=== PATIENT | female | born 1955 | race Caucasian/White ===

== ENCOUNTER 2018-08-13 11:15 | Inpatient (IN) ==
[2018-08-13] MEDS ORDERED: HYDROmorphone 2 MG/ML VIAL IV PRN ×3 (11:27→15:27)
[2018-08-13] MEDS ORDERED: DIPH,PERTUSS(ACELL),TET VAC/PF 0.5 ML SYRINGE IM ONE (11:51)
--- NOTE | 2018-08-13 12:10 | Cat Scan Report ---
History: Tripped over a dog with pelvic and hip injuries TECHNIQUE: The pelvis was imaged without contrast at 2.5 mm intervals. Sagittal coronal and oblique images were then reformatted. Radiation exposure was limited using dose reduction technology. FINDINGS: There is a nondisplaced fracture laterally in the right upper sacrum. There is buckling of the cortex along the anterior border. The SI joints remain normally aligned and symmetric. Is also a comminuted fracture of the right superior pubic ramus and right pubic bone. An obliquely oriented fracture is present at the junction the right inferior ischial and right inferior pubic ramus. The left side of the pelvis is intact. No hip fracture is present. There are several clips in the pelvis bilaterally adjacent to the iliac vessels. No intrapelvic hematoma is present. There is a hematoma in the right obturator internus muscle. The urinary bladder is intact. Arthritis is seen in the lower lumbar spine and there is grade 1 spondylolisthesis and disc space narrowing at L4-5. IMPRESSION: Nondisplaced fracture of the right side of the sacrum and fractures involving the right superior and inferior pubic rami and body of the right pubic bone Normal hips Billie Mejia was called with the results was called with results Interpreted and Authenticated by: Dax Alicea 08/13/18
--- NOTE | 2018-08-13 12:23 | Emergency Department Note ---
Fall HPI - General Chief Complaint: Fall Stated Complaint: right hip pain, fall Time Seen by Provider: 08/13/18 11:51 Source: patient, EMS Mode of arrival: ambulatory - History of Present Illness HPI Narrative: 63-year-old female presents with severe right sided hip pain. Onset about 30 minutes prior to arrival. She was walking her dog and tripped over the dog because she was in a hurry. Fell to the ground. Did not hit her head. No loss of consciousness. No head, neck, or back pain. The ambulance did give her a couple doses of fentanyl IV in route for pain control. States she is fine if she does not move but if she moves at all she has pain. No prior injury to this hip. Patient is a retired nurse practitioner and feels like that her hip is possibly broken her this is much more than just a contusion. Context: tripped/slipped Location of injury: pelvis (right hip) Associated symptoms (after fall): Reports: unable to walk. Denies: headache, neck pain, numbness, weakness, chest pain, shortness of breath, abdominal pain, lightheaded, vertigo, confusion - Related Data Home Medications Medication Instructions Recorded Confirmed Aspirin [Adult Low Dose Aspirin EC] 81 mg PO DAILY 05/24/18 08/13/18 Carvedilol [Coreg] 6.25 mg PO BID 05/24/18 08/13/18 Escitalopram [Lexapro] 20 mg PO DAILY 05/24/18 08/13/18 Lisinopril [Zestril] 10 mg PO BID 05/24/18 08/13/18 busPIRone [Buspar] 15 mg PO BID 05/24/18 08/13/18 Raloxifene HCl [Evista] 60 mg PO DAILY 08/13/18 08/13/18 Allergies Allergy/AdvReac Type Severity Reaction Status Date / Time venlafaxine [From Effexor] Allergy Intermediate Difficulty Verified 05/24/18 21: 26 Breathing doxycycline Allergy Mild Rash Verified 08/13/18 11:19 Sulfa (Sulfonamide Allergy Mild Rash Verified 05/24/18 21:26 Antibiotics) Review of Systems All systems ED: reviewed and negative except as stated. Fall PMH - Past Medical History Medical history: Reports: hypertension, other (Ovarian cancer 2005 in full remission) Surgical history ED: Reports: hysterectomy (Total), orthopedic, other ( Bilateral bunionectomy), other (Breast lift and eye left) Psychiatric history: Reports: anxiety - Social History smoking status: Never smoker Alcohol use: Reports: Daily (2-3 drinks daily) Drug use: Reports: none Physical Exam Limitations: no limitations General appearance: alert, in no apparent distress Head: atraumatic, normocephalic, normal inspection Eye: Present: normal appearance. Absent: conjunctival injection ENT: mucous membranes moist Chest: Present: normal inspection, symmetric chest wall rise Respiratory: Present: normal lung sounds bilaterally. Absent: respiratory distress, wheezes, accessory muscle use Cardiovascular: Present: regular rate, normal heart sounds Abdominal: Present: soft, normal bowel sounds. Absent: distention, tenderness, guarding Extremities: Present: normal inspection. Absent: full ROM (Greatly limited range of motion of the right and left hips related to pain in her pelvis and points to the right hip. No shortening or rotation. Does have pain with pelvic pressure. No back pain. No incontinence), pedal edema, joint swelling Neurological: Present: alert, oriented X3. Absent: motor sensory deficit Psychiatric: Present: normal affect, normal mood Skin: Present: warm, dry, intact, normal color. Absent: rash, cyanosis, diaphoresis, erythema Course Course Narrative: Patient is requiring multiple doses of IV pain medication we are still having a hard time getting her pain under control. I am waiting Dr. Dobson to call back regarding her pelvic CT and fractures but he is currently no surgical case right now. This is most likely not surgical at this point and we will think about admit for pain control. At [address] did speak with Dr[address] Dobson who agrees to see and admit the patient for pain control. Vital Signs Temperature 98.2 F 08/13/18 11:16 Pulse Rate 63 08/13/18 11:16 Respiratory Rate 18 08/13/18 11:16 Blood Pressure 178/98 08/13/18 11:16 Pulse Oximetry (%) 97 08/13/18 11:16 Temperature 98.2 F 08/13/18 11:16 Pulse Rate 63 08/13/18 11:16 Respiratory Rate 18 08/13/18 11:16 Blood Pressure 178/98 08/13/18 11:16 Pulse Oximetry (%) 97 08/13/18 11:16 Fall - Radiology Data Radiology results reviewed: Yes I reviewed the patient's radiology results. Disposition Pt seen by [facility]/PA only: Yes Clinical Impression: Pelvic fracture, Sacral fracture, closed, Fall, Pain Disposition: Home, Self-Care Condition: Fair Referrals: Tucker Proctor MD [Primary Care Provider] - Fredy Mcneil MD [Physician] - Time of Disposition: 12:42
--- NOTE | 2018-08-13 12:35 | Emergency Department Note ---
ED Note Addendum Note Addendum: I saw this patient and discussed the case with the mid-level provider and agree with the assessment and plan for admission.
[2018-08-13 13:15] LABS: Basophils # (Auto) 0 K/mcL (0.0-0.3); Basophils % (Auto) 0.2 % (0.0-2.0); Eosinophils # (Auto) 0.2 K/mcL (0.0-0.7); Eosinophils % (Auto) 2.1 % (0.0-7.0); Granulocytes % (Auto) 84.7 % (38.0-78.0); Lymphocytes # (Auto) 0.8 K/mcL (1.5-4.8); Lymphocytes % (Auto) 9.3 % (15.5-49.0); Mean Cell Volume 91.7 fL (80.0-100.0); Mean Corpuscular HGB Conc 33.9 g/dL (31.0-36.0); Mean Corpuscular Hemoglobin 31.1 pg (26.0-34.0); Monocytes # (Auto) 0.3 K/mcL (0.1-0.9); Monocytes % (Auto) 3.7 % (1.0-12.0); Platelet Count 303 K/mcL (140-440); RBC 4.07 M/mcL (4.00-5.20); Red Cell Distribution Width 12.9 % (11.5-14.5)
[2018-08-13 13:33] LABS: ALT/SGPT 16 U/l (0-40); Albumin/Globulin Ratio 1.2 (1.0-2.3); Alkaline Phosphatase 57 U/L (39-117); Blood Urea Nitrogen 11 mg/dl (8-23)
[2018-08-13] MEDS: 0.9 % SODIUM CHLORIDE 1,000 ML IV SCH ×2 (13:51→23:48)
--- NOTE | 2018-08-13 14:33 | XRay Report ---
HISTORY: Fell with pelvic fractures FINDINGS: The lungs are clear and well expanded. The heart size and pulmonary vasculature are normal. The aorta is mildly tortuous. The mediastinum and alisson are otherwise normal. No pleural effusion is present. No fracture is identified. IMPRESSION: Normal chest Interpreted and Authenticated by: Dax Alicea 08/13/18
[2018-08-13] MEDS ORDERED: ACETAMINOPHEN 325 MG TABLET PO PRN (15:27)
[2018-08-13] MEDS: ONDANSETRON 4 MG/2 ML VIAL IV PRN ×2 (16:46→22:12)
[2018-08-13] MEDS: CARVEDILOL 6.25 MG TABLET PO SCH (16:46)
[2018-08-13] MEDS: busPIRone 15 MG TABLET PO SCH (21:10)
[2018-08-13] MEDS: DOCUSATE SODIUM 100 MG CAPSULE PO SCH (21:10)
[2018-08-13] MEDS: PSYLLIUM HUSK PO SCH (21:10)
[2018-08-13] MEDS: LISINOPRIL 10 MG TABLET PO SCH (21:10)
--- NOTE | 2018-08-14 07:16 | Consultation ---
DATE OF CONSULTATION: 08/13/2018 HISTORY OF PRESENT ILLNESS: The patient is seen today through the emergency room after she had a same level fall. CHIEF COMPLAINT: Syncopal episode where she fell onto her hip, had immediate pain, swelling, and deformity, was seen in the emergency room and diagnosed with a sacral fracture, superior and inferior pubic fractures. She was also diagnosed with hyponatremia, anemia and a syncopal episode. REVIEW OF SYSTEMS: Negative for chest pain, shortness of breath mostly just pain in the right side today. PAST MEDICAL HISTORY: History of osteoporosis. MEDICATIONS: 1. Tylenol p.r.n. for pain. 2. BuSpar 15 mg b.i.d. 2. Coreg 6.25 mg p.o. b.i.d. 3. Docusate sodium 200 mg b.i.d. 4. Lexapro 20 mg daily. 5. Fexofenadine 180 mg p.o. every day. 6. Flonase p.r.n. 7. Dilaudid that she is getting here now. 8. Zestril 10 mg p.o. b.i.d. 9. Evista 1 dose 60 mg daily, which is an estrogen substitute. ALLERGIES: DOXYCYCLINE, SULFA, TRIMETHOPRIM, VENLAFAXINE. PHYSICAL EXAMINATION: GENERAL: Very pleasant female who is alert and oriented x3. Mood and affect are appropriate. She is well-kempt and groomed. EXTREMITIES: She has the right leg propped up. There is pain with any range of motion. LUNGS: Clear to auscultation. CARDIOVASCULAR: Tachycardic without murmurs, rubs, or gallops. Her foot is pink and warm, unable to pump her ankles up and down bilaterally with good strength. RADIOLOGIC STUDIES: CT scan was reviewed of her pelvis that demonstrate superior and inferior pubic ramus fractures as well as a sacral fracture zone 2 possibly going into zone 3. PLAN: The patient was informed of these findings and what the duration would be. She was admitted for pain control and mobility. This is something that should take a couple days to get the patient ambulating well again and then she can be discharged to home. Therapy can try to walk or tomorrow if the pain tolerable. EUNICE:saritha Job ID: [id number] Doc ID: [id number] Fredy Mcneil MD
[2018-08-14] MEDS: ESCITALOPRAM 20 MG TABLET PO SCH (08:17)
[2018-08-14] MEDS: DOCUSATE SODIUM 100 MG CAPSULE PO SCH ×2 (08:17→20:39)
[2018-08-14] MEDS: busPIRone 15 MG TABLET PO SCH ×2 (08:17→20:38)
[2018-08-14] MEDS: RALOXIFENE HCL 60 MG TABLET PO SCH (08:17)
[2018-08-14] MEDS: FEXOFENADINE 180 MG TABLET PO SCH (08:17)
[2018-08-14] MEDS: CARVEDILOL 6.25 MG TABLET PO SCH ×2 (08:17→17:19)
[2018-08-14] MEDS: FLUTICASONE PROPIONATE SPRAY.NAS NS SCH (08:20)
[2018-08-14] MEDS: PSYLLIUM HUSK PO SCH ×2 (08:20→20:39)
[2018-08-14] MEDS: oxyCODONE/APAP 5/325MG TABLET PO PRN ×3 (08:21→21:52)
[2018-08-14] MEDS: LISINOPRIL 10 MG TABLET PO SCH ×2 (08:25→20:39)
[2018-08-14] MEDS: 0.9 % SODIUM CHLORIDE 1,000 ML IV SCH ×3 (08:27→20:37)
[2018-08-14] MEDS ORDERED: ASPIRIN 81 MG TAB.CHEW PO SCH (09:00)
--- NOTE | 2018-08-14 21:34 | Orthopedic Progress Note ---
Subjective Patient information: Note initiated : 08/14/18 at 9:32 pm Service Date, if different from initiated Date: [] Patient: iWnter Henriquez 63 y/o F admitted on 08/13/18 for Rt Hip Pain, Fall /Pelvic Fracture, Sacral Fracture. Chief Complaint: [less pain with only a few pills today and no bm and no pt today] Objective Vital signs: Vital Signs Temp Pulse Resp BP Pulse Ox 08/14/18 20:00 98.3 F 72 16 132/77 91 08/14/18 16:00 97.9 F 69 15 113/72 94 08/14/18 12:00 98.6 F 75 18 110/68 93 08/14/18 07:19 99.2 F H 70 16 126/71 92 08/14/18 04:00 98.3 F 64 16 128/78 94 08/14/18 00:00 98.6 F 63 16 130/79 95 Intake and Output 08/14/18 08/14/18 08/14/18 05:59 13:59 21:59 Intake Total 1495 / 1495 2040 / 2040 1000 / 1000 Output Total 1200 / 1200 2700 / 2700 1450 / 1450 Balance 295 / 295 -660 / -660 -450 / -450 Intake: IV 995 / 995 1000 / 1000 1000 / 1000 Sodium Chloride 0.9% 1,000 ml @ 995 / 995 1000 / 1000 1000 / 1000 100 mls/hr IV .Q10H [facility] Rx#: [id number] Oral 500 / 500 1040 / 1040 Output: Urine Catheter Amount 1200 / 1200 2700 / 2700 1450 / 1450 Other: Meal Lunch Dinner Percent of Meal Consumed 100% 50% Feeding Ability Independent Independent Urine Appearance Clear Clear Clear Uretheral (Loving) Clear Urine Color Dark Yellow Pale Pale Uretheral (Loving) Pale Urine Odor Strong Normal Weight 150 lb 143 lb 8 oz Patient Weight 08/15/18 05:59 Weight 143 lb 8 oz Intake & Output: Intake & Output 08/14/18 08/14/18 08/14/18 05:59 13:59 21:59 Intake Total 1495 / 1495 2040 / 2040 1000 / 1000 Output Total 1200 / 1200 2700 / 2700 1450 / 1450 Balance 295 / 295 -660 / -660 -450 / -450 Weight 150 lb 143 lb 8 oz Intake: IV 995 / 995 1000 / 1000 1000 / 1000 Sodium Chloride 0.9% 1,000 ml @ 995 / 995 1000 / 1000 1000 / 1000 100 mls/hr IV .Q10H [place] Rx#: [id number] Oral 500 / 500 1040 / 1040 Output: Urine Catheter Amount 1200 / 1200 2700 / 2700 1450 / 1450 Other: Meal Lunch Dinner Percent of Meal Consumed 100% 50% Feeding Ability Independent Independent Urine Appearance Clear Clear Clear Uretheral (Loving) Clear Urine Color Dark Yellow Pale Pale Uretheral (Loving) Pale Urine Odor Strong Normal Incision: Yes healing Incision clean and dry: Yes Dressing: Yes clean Weight bearing status: partial Neurological exam IM: Yes oriented X3, Yes neurovascular intact Extremities exam IM: Yes Foot pink and warm (ambulate today), Yes neurovascular intact - Labs CBC & BMP: 08/13/18 12:28 08/13/18 12:28 Labs: 08/13/18 12:28 Hgb 12.6 Hct 37.3
--- NOTE | 2018-08-14 21:37 | Discharge Summary ---
Ortho Discharge - [facility] - Patient Instructions Diet: Regular Diet Activity: activity as tolerated, weight bearing as tolerated Total Hip Protocol: Follow activity instructions as provided by Physical Therapy. Dressing Care: No dressing - open to air - Follow Up Plan Follow Up Appointments: Fredy Mcneil MD [Physician] - Tucker Proctor MD [Primary Care Provider] - Disposition: Xfer SNF Prognosis: Fair Rehab Potential: Good I certify that the patient requires SNF services: Yes Overall status at discharge: patient is progressing back to baseline - Orders For Discharge Prescriptions: oxyCODONE/APAP [Percocet 5-325 mg] 1 tab PO Q4HP PRN #60 tab PRN Reason: Pain Additional Discharge Orders: Physical Therapy at Discharge - [facility] Location: None Selected CPM Discharge Order Location: None Selected Toilet Riser Discharge Order Location: None Selected Walker Location: None Selected
[2018-08-15] MEDS: oxyCODONE/APAP 5/325MG TABLET PO PRN ×2 (07:52→15:52)
[2018-08-15] MEDS: CARVEDILOL 6.25 MG TABLET PO SCH ×2 (07:54→17:30)
[2018-08-15] MEDS: DOCUSATE SODIUM 100 MG CAPSULE PO SCH ×2 (10:08→21:17)
[2018-08-15] MEDS: FEXOFENADINE 180 MG TABLET PO SCH (10:08)
[2018-08-15] MEDS: LISINOPRIL 10 MG TABLET PO SCH ×2 (10:08→21:17)
[2018-08-15] MEDS: busPIRone 15 MG TABLET PO SCH ×2 (10:08→21:17)
[2018-08-15] MEDS: ESCITALOPRAM 20 MG TABLET PO SCH (10:08)
[2018-08-15] MEDS: FLUTICASONE PROPIONATE SPRAY.NAS NS SCH (10:09)
[2018-08-15] MEDS: RALOXIFENE HCL 60 MG TABLET PO SCH (10:09)
[2018-08-15] MEDS: ASPIRIN 325 MG ENTERIC COATED TABLET PO SCH ×2 (10:09→21:17)
[2018-08-15] MEDS: PSYLLIUM HUSK PO SCH ×2 (10:09→21:17)
[2018-08-15] MEDS: TEMAZEPAM 15 MG CAPSULE PO PRN (21:17)
[2018-08-16] MEDS: FEXOFENADINE 180 MG TABLET PO SCH (07:31)
[2018-08-16] MEDS: CARVEDILOL 6.25 MG TABLET PO SCH ×2 (07:31→16:44)
[2018-08-16] MEDS: ASPIRIN 325 MG ENTERIC COATED TABLET PO SCH ×2 (07:32→21:02)
[2018-08-16] MEDS: oxyCODONE/APAP 5/325MG TABLET PO PRN ×4 (07:32→22:02)
[2018-08-16] MEDS: busPIRone 15 MG TABLET PO SCH ×2 (07:32→21:02)
[2018-08-16] MEDS: DOCUSATE SODIUM 100 MG CAPSULE PO SCH ×2 (07:33→21:02)
[2018-08-16] MEDS: ESCITALOPRAM 20 MG TABLET PO SCH (07:33)
[2018-08-16] MEDS: LISINOPRIL 10 MG TABLET PO SCH ×2 (07:33→21:02)
[2018-08-16] MEDS: FLUTICASONE PROPIONATE SPRAY.NAS NS SCH (07:34)
[2018-08-16] MEDS: PSYLLIUM HUSK PO SCH ×2 (07:36→21:02)
[2018-08-16] MEDS: RALOXIFENE HCL 60 MG TABLET PO SCH (07:41)
[2018-08-16] MEDS ORDERED: BISACODYL 10 MG SUPP.RECT PR PRN (15:09)
[2018-08-16] MEDS: TEMAZEPAM 15 MG CAPSULE PO PRN (21:02)
[2018-08-17] MEDS: PSYLLIUM HUSK PO SCH ×2 (07:31→21:02)
[2018-08-17] MEDS: busPIRone 15 MG TABLET PO SCH ×2 (07:32→21:01)
[2018-08-17] MEDS: ASPIRIN 325 MG ENTERIC COATED TABLET PO SCH ×2 (07:32→21:02)
[2018-08-17] MEDS: LISINOPRIL 10 MG TABLET PO SCH ×2 (07:32→21:02)
[2018-08-17] MEDS: oxyCODONE/APAP 5/325MG TABLET PO PRN ×3 (07:32→22:16)
[2018-08-17] MEDS: FEXOFENADINE 180 MG TABLET PO SCH (07:32)
[2018-08-17] MEDS: ESCITALOPRAM 20 MG TABLET PO SCH (07:32)
[2018-08-17] MEDS: CARVEDILOL 6.25 MG TABLET PO SCH ×2 (07:32→17:58)
[2018-08-17] MEDS: RALOXIFENE HCL 60 MG TABLET PO SCH (07:33)
[2018-08-17] MEDS: FLUTICASONE PROPIONATE SPRAY.NAS NS SCH (07:33)
[2018-08-17] MEDS: DOCUSATE SODIUM 100 MG CAPSULE PO SCH ×2 (07:40→21:01)
--- NOTE | 2018-08-17 12:12 | Orthopedic Progress Note ---
Subjective Patient information: Note initiated : 08/17/18 at 12:10 pm Service Date, if different from initiated Date: [] Patient: Winter Henriquez 63 y/o F admitted on 08/13/18 for Rt Hip Pain, Fall /Pelvic Fracture, Sacral Fracture. Chief Complaint: [] Interval history: Patient is doing well and her pain is controlled. She is participating in PT and does have an occasional pain but is otherwise doing very well. Objective Vital signs: Vital Signs Temp Pulse Resp BP BP Pulse Ox 08/17/18 08:00 98.2 F 16 103/73 94 08/17/18 07:58 18 95 08/17/18 04:00 98.1 F 67 16 148/86 94 08/16/18 23:42 98.5 F 68 16 148/90 93 08/16/18 19:54 82 14 95 08/16/18 19:53 98.0 F 82 14 119/77 95 08/16/18 15:41 98.6 F 68 16 151/93 94 Intake and Output 08/16/18 08/17/18 08/17/18 21:59 05:59 13:59 Intake Total 480 / 480 1200 / 1200 480 / 480 Output Total 950 / 950 2400 / 2400 Balance -470 / -470 -1200 / -1200 480 / 480 Intake: Oral 480 / 480 1200 / 1200 480 / 480 Output: Urine Catheter Amount 950 / 950 2400 / 2400 Other: Percent of Meal Consumed 100% Feeding Ability Independent Urine Appearance Clear Clear Uretheral (Loving) Clear Clear Urine Color Bright Yellow Bright Yellow Bright Yellow Uretheral (Loving) Bright Yellow Bright Yellow Urine Odor Normal Normal Uretheral (Loving) Normal Normal Stool Size Moderate Stool Color Brown Stool Consistency Normal for Patient # Bowel Movements 1 Weight 143 lb Intake & Output: Intake & Output 08/16/18 08/17/18 08/17/18 21:59 05:59 13:59 Intake Total 480 / 480 1200 / 1200 480 / 480 Output Total 950 / 950 2400 / 2400 Balance -470 / -470 -1200 / -1200 480 / 480 Weight 143 lb Intake: Oral 480 / 480 1200 / 1200 480 / 480 Output: Urine Catheter Amount 950 / 950 2400 / 2400 Other: Percent of Meal Consumed 100% Feeding Ability Independent Urine Appearance Clear Clear Uretheral (Loving) Clear Clear Urine Color Bright Yellow Bright Yellow Bright Yellow Uretheral (Loving) Bright Yellow Bright Yellow Urine Odor Normal Normal Uretheral (Loving) Normal Normal Stool Size Moderate Stool Color Brown Stool Consistency Normal for Patient # Bowel Movements 1 Extremities exam IM: No calf tenderness, Yes Foot pink and warm, Yes neurovascular intact - Labs CBC & BMP: 08/13/18 12:28 08/13/18 12:28 Labs: 08/13/18 12:28 Hgb 12.6 Hct 37.3 Assessment and Plan (1) Pelvic fracture Status: Acute (2) Sacral fracture, closed Status: Acute - Narrative A/P Narrative: Patient is going to a SNF tomorrow and is comfortable with her plan of continuing WBAT and follow up as directed with Dr. Mcneil. Aspirin 325 BID for dvt prophylaxis for 1 month DC Evista due to blood clot risk
[2018-08-17] MEDS: 0.9 % SODIUM CHLORIDE 10 ML SYRINGE IV SCH ×2 (13:21→22:16)
[2018-08-17] MEDS: TEMAZEPAM 15 MG CAPSULE PO PRN (21:01)
[2018-08-18] MEDS: 0.9 % SODIUM CHLORIDE 10 ML SYRINGE IV SCH ×3 (03:54→12:55)
[2018-08-18] MEDS: oxyCODONE/APAP 5/325MG TABLET PO PRN ×2 (07:20→12:53)
[2018-08-18] MEDS: DOCUSATE SODIUM 100 MG CAPSULE PO SCH (08:47)
[2018-08-18] MEDS: FEXOFENADINE 180 MG TABLET PO SCH (08:47)
[2018-08-18] MEDS: busPIRone 15 MG TABLET PO SCH (08:48)
[2018-08-18] MEDS: ESCITALOPRAM 20 MG TABLET PO SCH (08:49)
[2018-08-18] MEDS: CARVEDILOL 6.25 MG TABLET PO SCH (08:49)
[2018-08-18] MEDS: LISINOPRIL 10 MG TABLET PO SCH (08:49)
[2018-08-18] MEDS: FLUTICASONE PROPIONATE SPRAY.NAS NS SCH (08:50)
[2018-08-18] MEDS: ASPIRIN 325 MG ENTERIC COATED TABLET PO SCH (08:50)
[2018-08-18] MEDS: PSYLLIUM HUSK PO SCH (08:52)
--- NOTE | 2018-08-26 10:29 | Discharge Summary ---
DATE OF ADMISSION: 08/13/2018 DATE OF DISCHARGE: 08/18/2018 ADMITTING DIAGNOSIS: Right hip pain fall with pelvic and sacral fractures admitted primarily for pain control. DISCHARGE DIAGNOSIS: Right hip pain fall with pelvic and sacral fractures admitted primarily for pain control. HOSPITAL COURSE: The patient was admitted for pain control and remained stable throughout the hospital course and stay with both vital signs, hematocrit was 12.6 and 37.3 with all stable vital signs. She received the standard discharge instructions for medications, followup, weightbearing status, physical therapy guidelines and did require [facility] facility services. The patient was discharged to [facility] facility on 08/18/2018 with the instructions of continued weightbearing as tolerated as well as DVT prophylaxis for one month, including aspirin 325 mg b.i.d. during this time. Evista was discontinued due to hypercoagulable state risks. BAP:ward Job ID: [id number] Doc ID: [id number] Chris Nguyen PA-C
== END 2018-08-18 15:40 | DRG 536 ==
LOC: ED 11:15 → MEDSUR 13:42
PROVIDERS: ADMIT Orthopaedic Surgery; ATTEND Orthopaedic Surgery